=== PATIENT | female | born 1975 | race Caucasian/White ===

== ENCOUNTER 2018-07-21 05:21 | Emergency (ER) | payer OTHER ==
[2018-07-21] MEDS ORDERED: LIDOCAINE 1% INJ (10 MG/ML) 10 ML MDV INJ ONE (06:26)
[2018-07-21] MEDS ORDERED: BUPIVACAINE HCL 0.5 % INJ/PF 30 ML SDV INJ ONE (06:26)
--- NOTE | 2018-07-21 06:29 | ER Document Report ---
ED Oral Problem - General Chief Complaint: Toothache Stated Complaint: TOOTHPAIN Time Seen by Provider: 07/21/18 06:19 Mode of Arrival: Ambulatory Information source: Patient TRAVEL OUTSIDE OF THE [place] IN LAST 30 DAYS: No - HPI Patient complains to provider of: Toothache Notes: Patient is here with complaints of right upper dental pain. She states that she saw her dentist last week, she had a temporary filling placed. She states that the temporary filling came out partially and she is been having some increasing pain to the right upper tooth. She is taken Aleve and Tylenol without any relief of her pain. No swelling, no fever, no vomiting or diarrhea. She does complain of some nausea. She denies any difficulty breathing or swallowing. No chest pain or shortness of breath. Pain is constant, moderate, nothing seems to make it better. No other complaints at this time. - Related Data Allergies/Adverse Reactions: moxifloxacin [From Avelox] Allergy (Verified 07/21/18 05:23) Penicillins Allergy (Verified 07/21/18 05:23) Past Medical History - Social History Smoking Status: Unknown if Ever Smoked Family History: Reviewed & Not Pertinent Patient has suicidal ideation: No Patient has homicidal ideation: No Renal/ Medical History: Denies: Hx Peritoneal Dialysis Review of Systems - Review of Systems -: Yes All other systems reviewed and negative Physical Exam - Vital signs Vitals: Temp Pulse Resp BP Pulse Ox 97.6 F 72 14 135/87 H 100 07/21/18 05:27 07/21/18 05:27 07/21/18 05:27 07/21/18 05:27 07/21/18 05:27 - Notes Notes: GENERAL: alert, cooperative, nontoxic, no distress. HEAD: normocephalic, atraumatic EYES: conjunctiva pink without discharge, no external redness or swelling. EARS: no external swelling, no external redness, no mastoid redness, swelling, tenderness. Ear canals are clear without swelling or drainage. TMs pearly ryder, no redness, no bulging, normal landmarks, no perforation. NOSE: atraumatic, no external swelling. clear rhinorrhea noted. MOUTH/THROAT: mucous membranes moist and pink, posterior pharynx without erythema, swelling, exudate. No trismus or drooling. Cavity noted to her right upper second molar with temporary filling material noted. Some of this has come out of the tooth. There is no gum swelling. No drainage. No abscess. No sublingual swelling or induration. No facial swelling. NECK: soft, supple, full range of motion, no meningismus. CHEST: no distress, lungs clear and equal throughout. No wheezing, rales, rhonchi. CARDIAC: regular rate and rhythm, no murmur, normal capillary refill, normal pulses. No peripheral edema noted. BACK: full range of motion, no CVA tenderness. EXTREMITIES: full range of motion of all extremities. No redness, no swelling. NEURO: alert and oriented A&O3, no focal deficits, full range of motion of all extremities. PYSCH: appropriate mood, affect. Patient is cooperative. SKIN: pink, warm, dry, no rash. Course - Re-evaluation Re-evalutation: 07/21/18 06:55 Patient is nontoxic-appearing with stable vitals. Patient is here with co mplaints of right upper dental pain. She has a temporary filling with part of it fell out. No sign of abscess. She is in no distress. No drainable abscess. Dental block was performed with improvement of pain. Patient will be discharged home with a small supply of Middle[place] with instructions to follow-up with her dentist tomorrow or today if possible for reevaluation. Patient verbalized understanding. The patient's emergency department workup and current diagnosis were explained to the patient and or family. Follow-up instructions were provided. Medications if prescribed were discussed. Instructions for when to return to the emergency department including specific worrisome symptoms were discussed with the patient and/or family. - Vital Signs Vital signs: Temp Pulse Resp BP Pulse Ox 97.6 F 72 14 135/87 H 100 07/21/18 05:27 07/21/18 05:27 07/21/18 05:27 07/21/18 05:27 07/21/18 05:27 Procedures - Additional Procedures Dental block Additional Procedures: Other - Superior alveolar block performed with 1% lidocaine and 0.5% bupivacaine. Patient tolerated procedure well with no immediate complications. Anesthesia starting work prior to discharge. Discharge - Discharge Clinical Impression: Pain, dental Condition: Stable Disposition: HOME, SELF-CARE Instructions: Toothache ([facility]) Additional Instructions: Take medication as prescribed. Follow-up with your dentist today or tomorrow. Follow-up sooner for worsening pain, fever, swelling, difficulty breathing or swelling, persistent vomiting, or for any further concerns. Prescriptions: Hydrocodone/Acetaminophen [(ER) Middle[place] 5-325 mg Tabs #6 ER Disp] 1 - 2 tab PO Q6H PRN #6 dspk PRN Reason: Forms: Return to Work Referrals: [facility] [Provider Group] - Follow up as needed
[2018-07-21] MEDS ORDERED: HYDROCODONE/ACETAMINOPHEN 5-325 MG (6 TAB/ER DISP) PO PRN (06:57)
[2018-07-21 07:14] VITALS: BP 133/84
== END 2018-07-21 07:16 | disposition home or self-care (01) ==
LOC: ER 05:21
DX: K02.9 Dental caries, unspecified (principal); K08.89 Other specified disorders of teeth and supporting structures; J34.89 Other specified disorders of nose and nasal sinuses; Z98.890 Other specified postprocedural states; Z88.1 Allergy status to other antibiotic agents; Z88.0 Allergy status to penicillin
CPT/HCPCS: 99282; 64400; J3490

== ENCOUNTER 2018-09-24 07:40 | Emergency (ER) | payer OTHER ==
[2018-09-24 08:00] VITALS: BP 125/74
[2018-09-24] MEDS ORDERED: OXYCODONE-ACETAMINOPHEN 5-325 MG TABLET PO ONE (08:00)
--- NOTE | 2018-09-24 08:03 | ER Document Report ---
ED Extremity Problem, Upper - General Chief Complaint: Laceration Stated Complaint: FINGER INJURY Time Seen by Provider: 09/24/18 07:52 Primary Care Provider: KEIKO GAR DO [Primary Care Provider] - Follow up in 3-5 days TRAVEL OUTSIDE OF THE [place] IN LAST 30 DAYS: No - HPI Notes: Patient is a 43-year-old female that presents to the emergency department for chief complaint of right thumb laceration. At about 7 AM this morning patient was using a mandolin and sliced her right thumb. She states her last tetanus vaccine was within the last 5 years. She is not on any blood thinning medication. She denies blunt trauma numbness and tingling. Patient has not taken any medication for pain. She does report a throbbing burning pain at the laceration site on her distal right thumb. Past Medical History: Reviewed in chart Past Surgical History: Reviewed in chart Social History: Reviewed in chart Family History: Reviewed and noncontributory for presenting illness Allergies: Reviewed, see documented allergy list. REVIEW OF SYSTEMS: CONSTITUTIONAL : No fever No chills No diaphoresis No recent illness EENT: No vision changes No congestion No sore throat CARDIOVASCULAR: No chest pain No palpitations RESPIRATORY: No shortness of breath No cough No difficulty breathing GASTROINTESTINAL: No abdominal pain No nausea No vomiting No diarrhea GENITOURINARY: No dysuria No hematuria No difficulty urinating MUSCULOSKELETAL: No back pain No leg pain No arm pain SKIN: No rashes Right thumb laceration LYMPHATIC: No swollen, enlarged glands. NEUROLOGICAL: No lightheadedness No headache No weakness No paresthesias PSYCHIATRIC: No anxiety No depression PHYSICAL EXAMINATION: Vital signs reviewed, nursing noted reviewed. GENERAL: Well-appearing, well-nourished and in no acute distress. HEAD: Atraumatic, normocephalic. EYES: Eyes appear normal, extraocular movements intact, sclera anicteric, conjunctiva are normal. ENT: nares patent, oropharynx clear without exudates. Moist mucous membranes. NECK: Normal range of motion, supple without lymphadenopathy LUNGS: Breath sounds clear to auscultation bilaterally and equal. No wheezes rales or rhonchi. HEART: Regular rate and rhythm without murmurs ABDOMEN: Soft, nontender, normoactive bowel sounds. No rebound, guarding, or rigidity. No masses appreciated. EXTREMITIES: Distal right thumb tenderness over laceration site, no bony tenderness or deformity, good range of motion, no pitting or edema. NEUROLOGICAL: No focal neurological deficits. Moves all extremities spontaneously Motor and sensory grossly intact on exam. PSYCH: Normal mood, normal affect. SKIN: Warm, Dry, normal turgor, 1.0 x 0.5 cm avulsion laceration to the pad of her right thumb with moderate bleeding, no bone exposure or nail involvement. - Related Data Allergies/Adverse Reactions: moxifloxacin [From Avelox] Allergy (Verified 07/21/18 05:23) Penicillins Allergy (Verified 07/21/18 05:23) Past Medical History - Social History Smoking Status: Never Smoker Frequency of alcohol use: None Drug Abuse: None Family History: Reviewed & Not Pertinent Patient has suicidal ideation: No Patient has homicidal ideation: No Renal/ Medical History: Denies: Hx Peritoneal Dialysis Past Surgical History: Reports: Hx Tonsillectomy Physical Exam - Vital signs Vitals: Temp Pulse Resp BP Pulse Ox 97.5 F 80 16 123/74 100 09/24/18 07:46 09/24/18 07:46 09/24/18 07:46 09/24/18 07:46 09/24/18 07:46 Course - Re-evaluation Re-evalutation: 09/24/18 08:08 Vitals reviewed. Nursing notes reviewed. Patient is up-to-date on tetanus vaccination. She has an avulsion laceration to her distal right thumb and is not requiring suturing. Patient does have a moderate amount of bleeding and Surgifoam and direct pressure dressing will be used for hemostasis. Patient was ordered a Percocet for her pain. She will follow for wound reevaluation at her primary care doctors in the next few days. She was counseled on symptoms of infection and return precautions. She is stable at discharge. - Vital Signs Vital signs: Temp Pulse Resp BP Pulse Ox 97.5 F 80 16 125/74 100 09/24/18 07:58 09/24/18 07:58 09/24/18 07:58 09/24/18 07:58 09/24/18 07:58 Discharge - Discharge Clinical Impression: Thumb laceration Qualifiers: Encounter type: initial encounter Damage to nail status: without damage Foreign body presence: without foreign body Laterality: right Qualified Code(s): S6 1.011A - Laceration without foreign body of right thumb without damage to nail, initial encounter Condition: Stable Disposition: HOME, SELF-CARE Instructions: Laceration Care ([facility]) Additional Instructions: Please return to the emergency department if you have any worsening, or concern of your symptoms. Please return to the emergency department if you develop chest pain, difficulty breathing, severe abdominal pain, or ongoing vomiting. Please follow-up with your primary care physician in 2-3 days and any other recommended physicians. If prescribed, take all medications as directed. If you have any questions or concerns do not hesitate to return the emergency department for evaluation. Remove your dressing in 24 hours and wash your right thumb with soapy water. Try to not disturb any scab formation that has begun. Monitor for signs of infection which include increased redness, swelling, pain and fevers. If you begin to notice infection please follow-up in the emergency room or with your primary care doctor for wound reevaluation and possible antibiotics. Referrals: KEIKO GAR, [Primary Care Provider] - Follow up in 3-5 days
== END 2018-09-24 08:12 | disposition home or self-care (01) ==
LOC: ER 07:40
DX: S61.011A Laceration without foreign body of right thumb without damage to nail, initial encounter (principal); W45.8XXA Other foreign body or object entering through skin, initial encounter; Y93.89 Activity, other specified; Z88.1 Allergy status to other antibiotic agents; Z88.0 Allergy status to penicillin
CPT/HCPCS: 99282

== ENCOUNTER 2018-09-26 11:40 | Emergency (ER) | payer OTHER ==
[2018-09-26 11:46] VITALS: BP 117/98
[2018-09-26] MEDS ORDERED: ACETAMINOPHEN 325 MG TABLET PO ONE (12:36)
[2018-09-26] MEDS ORDERED: LIDOCAINE 4%/TETRACAINE 0.5%/EPI 0.18% 5 ML TOPICAL SOLN TOP ONE (12:48)
[2018-09-26] MEDS ORDERED: OXYCODONE HCL IR 5 MG TABLET PO ONE (12:49)
--- NOTE | 2018-09-26 12:49 | ER Document Report ---
ED Wound - General Chief Complaint: Wound Recheck Stated Complaint: RIGHT THUMB PAIN Time Seen by Provider: 09/26/18 12:29 Primary Care Provider: KEIKO GAR DO [Primary Care Provider] - Follow up as needed Notes: 43-year-old female presents to the emergency department chief complaint of a wound recheck. She said that she was in here 2 days ago after an injury by a mandolin that sliced part of the pad of her right thumb off. She said when they put the dressing on it the "foam pad got moved and ended up off to the side". She said the gauze then stuck to it and she has been unsuccessful trying to free it up. She says that she does have pain at this time. She says she has tried soaking it, she has tried peeling it back while soaking it, and she has tried nipping away at it without any success. There is no redness, warmth, red streaks, fevers at this time. No other complaints TRAVEL OUTSIDE OF THE [place] IN LAST 30 DAYS: No - Related Data Allergies/Adverse Reactions: moxifloxacin [From Avelox] Allergy (Verified 07/21/18 05:23) Penicillins Allergy (Verified 07/21/18 05:23) Past Medical History - Social History Smoking Status: Never Smoker Family History: Reviewed & Not Pertinent Renal/ Medical History: Denies: Hx Peritoneal Dialysis Past Surgical History: Reports: Hx Tonsillectomy Review of Systems - Review of Systems Constitutional: See HPI EENT: No symptoms reported Cardiovascular: No symptoms reported Respiratory: No symptoms reported Gastrointestinal: No symptoms reported Genitourinary: No symptoms reported Female Genitourinary: No symptoms reported Musculoskeletal: No symptoms reported Skin: See HPI Hematologic/Lymphatic: No symptoms reported Neurological/Psychological: No symptoms reported Physical Exam - Vital signs Vitals: Temp Pulse Resp BP Pulse Ox 98.3 F 87 12 117/98 H 100 09/26/18 11:45 09/26/18 11:45 09/26/18 11:45 09/26/18 11:45 09/26/18 11:45 - Notes Notes: PHYSICAL EXAMINATION: Reviewed vital signs and charting by RN GENERAL: Alert, interacts well. No acute distress. HEAD: Normocephalic, atraumatic. EYES: Pupils equal and round. Extraocular movements intact. ENT: Oral mucosa moist, tongue midline. NECK: Full range of motion. Trachea midline. EXTREMITIES: Moves all 4 extremities spontaneously. No edema, No cyanosis. PSYCH: Normal affect, normal mood. SKIN: Warm, dry, normal turgor. Tip of right thumb pad with an avulsion injury and scab formation intermixed with gauze. No redness, warmth, red streaks. Course - Re-evaluation Re-evalutation: 09/26/18 12:47 Well-appearing. It does appear that the tip of her right thumb does have scab formation intermixed with gauze. She tried to remove it but we will put LET on it and then try to peel it back and then apply Surgifoam again. 09/26/18 14:08 Patient did not tolerate let. I then performed a digital block of the right thumb. And the scab/gauze peeled off rather easily. I then irrigated with 500 mL of normal saline under pressure. Plan is to place Surgifoam with a Telfa pad and wrap it. At this time patient is stable for discharge with strict return precautions. - Vital Signs Vital signs: Temp Pulse Resp BP Pulse Ox 98.3 F 87 12 117/98 H 100 09/26/18 11:45 09/26/18 11:45 09/26/18 11:45 09/26/18 11:45 09/26/18 11:45 Discharge - Discharge Clinical Impression: Injury of right thumb Qualifiers: Encounter type: subsequent encounter Qualified Code(s): S69.91XD - Unspecified injury of right wrist, hand and finger(s), subsequent encounter Condition: Good Disposition: HOME, SELF-CARE Additional Instructions: You were seen in the emergency department this afternoon for the injury of your right thumb. I am very sorry that you had to come back and have the wound redressed and go through the entire process. We have placed Surgifoam on it and a nonstick Telfa pad underneath the dressing. Please leave the Surgifoam on it will fall off naturally on its own. Try to keep the area clean. The numbing medicine should wear off in the next couple of hours. It may linger a little longer. Start to develop fevers, you lose pulses in your right arm, your thumb or fingers turn black or blue, you get warmth or redness around the site with red streaks, please immediately return to the emergency department as this is sign of an underlying infection and would require antibiotics. Referrals: KEIKO GAR, DO [Primary Care Provider] - Follow up as needed
[2018-09-26] MEDS ORDERED: LIDOCAINE 1% INJ (10 MG/ML) 10 ML MDV INJ ONE (13:26)
[2018-09-26] MEDS ORDERED: LIDOCAINE 1% INJ-PF (10 MG/ML) 30 ML SDV ONE (13:27)
== END 2018-09-26 14:20 | disposition home or self-care (01) ==
LOC: ER 11:40
DX: S61.001D Unspecified open wound of right thumb without damage to nail, subsequent encounter (principal); W45.8XXD Other foreign body or object entering through skin, subsequent encounter; Z88.1 Allergy status to other antibiotic agents; Z88.0 Allergy status to penicillin
CPT/HCPCS: 99282; 64450; J3490 ×2